=== PATIENT | male | born 1950 | race Asian ===

== ENCOUNTER 2017-06-30 14:07 | Emergency (ER) | payer MEDICARE, OTHER ==
[~2017-06-30] VITALS: Ht 165.1 cm; Wt 72.7 kg
[2017-06-30 14:17] VITALS: BP 162/115; PULSE 99; RESP 18; O2SAT 94
[2017-06-30 14:38] LABS: BASOPHILS % (AUTO) 0.1 % (0-3); EOSINOPHILS % (AUTO) 0.2 % (0-5); MONOCYTES % (AUTO) 8.8 % (4-12); Mean Corpuscular Hemoglobin 29.9 pg (27.0-35.0); Mean Corpuscular Volume 84.3 fL (81-100); NEUTROPHILS % (AUTO) 73.4 % (40-74); Platelet Count 230 bil/L (150-400)
[2017-06-30 15:02] LABS: Magnesium 1.9 mg/dL (1.6-2.6)
--- NOTE | 2017-06-30 16:02 | ED.REPORT ---
HPI-Abd Pain M 40 and Over Date of Service Jun 30, 2017 ED Provider: Jorge Luis Amador MD A 67 year old male with a history of hypertension and diabetes presents to the ED complaining of abdominal pain. This pain began last night and is located in the lower abdomen. The pt admits to associated low grade fever, nausea, and 7 episodes of diarrhea in addition to dark stools. He is concerned that the stool color may be due to blood. The pt denies vomiting, in addition to recent antibiotic use. Nursing Notes Stated Complaint: STOMACH ACHE Chief Complaint: Male Abdominal Pain Nursing Notes Reviewed: Yes Allergies: Coded Allergies: No Known Allergies (Unverified , 06/30/17) Scheduled PRN Hydrocodone-Acetaminophen 5-325 mg (Hydrocodone-Acetaminophen 5-325 mg) 1 Each Tablet 1 TABLET PO Q4H PRN PRN For Pain Ondansetron ODT (Zofran ODT) 4 Mg Tablet 4 MG PO Q4H PRN PRN For Nausea General Time Seen by MD: 15:58 Chief Complaint Abdominal pain Hx Obtained From: Patient Arrived By: Walk-in Sudden in Onset?: No Onset Occurred: 1 day ago Symptom Duration: Since onset Recent Healthcare: No recent doctor visit, No recent hospitalization Similar Sx Previous: No Past Medical History Past Medical History hypertension diabetes Past Surgical History prostatectomy 2009 shoulder nose Smoking History Unknown if Ever Smoker Social History Alcohol Use: "Social" Other Social History: Good social support, Ambulatory Status Independent Review of Systems Review of Systems Note: dark stool Constitutional: Reports: Fever Respiratory: Denies: Non-productive cough, Shortness of breath GI: Reports: Abdominal pain, Diarrhea, Nausea, Denies: Vomiting Musculoskeletal: Denies: Back pain, Neck pain Complete sys rev & neg: except as marked. Physical Exam Initial Vital Signs Vital Signs (First) Date Time Temp Pulse Resp B/P Pulse Ox O2 Delivery O2 Flow Rate FiO2 06/30/17 14:17 36.6 99 18 162/115 94 Room Air Initial VS: Reviewed General/Constitutional: Awake, Alert Respiratory / Chest: Atraumatic, Breath sounds NL, Breath sounds = bilat, No respiratory distress Cardiovascular: Heart rate NL, Regular rhythm, Heart sounds NL, No murmurs Abdomen: Atraumatic, Soft, No guarding, No rebound mild lower abdominal tenderness Back: Atraumatic, Full range of motion, No CVA tenderness Head / Eyes: Atraumatic, Normocephalic, PERRL, EOMI ENT: Atraumatic, Airway patent, Mucous membranes moist Skin: Atraumatic, Color NL, No rash, Warm, Dry Rectum / Perineum: Atraumatic, No gross blood guaiac negative Neurologic: Oriented X3, Speech NL, No motor deficits, No sensory deficits Neck: Atraumatic, Supple, Full range of motion Upper Extremity / MS: Atraumatic, Full range of motion Lower Extremity / Pelvis / MS: Atraumatic, Full range of motion Psychiatric: Affect NL, Mood NL Interpretation & Diagnostics Lab Results Interpretation Result Diagram: 06/30/17 1430 06/30/17 1430 Test 06/30/17 14:30 06/30/17 16:08 White Blood Count 12.7th/mm3 (3.8-10.1) Red Blood Count 5.59mil/mm3 (4.40-5.80) Hemoglobin 16.7g/dL (13.8-17.2) Hematocrit 47.1% (41.0-50.0) Mean Corpuscular Volume 84.3fL (81-100) Mean Corpuscular Hemoglobin 29.9pg (27.0-35.0) Mean Corpuscular Hemoglobin Concent 35.5% (32.0-37.0) Red Cell Distribution Width 13.0% (12.3-15.4) Platelet Count 230bil/L (150-400) Neutrophils (%) (Auto) 73.4% (40-74) Lymphocytes (%) (Auto) 17.3% (14-46) Monocytes (%) (Auto) 8.8% (4-12) Eosinophils (%) (Auto) 0.2% (0-5) Basophils (%) (Auto) 0.1% (0-3) Sodium Level 136mEq/L (134-144) Potassium Level 4.0mEq/L (3.5-5.2) Chloride Level 95mEq/L (97-108) Carbon Dioxide Level 25mmol/L (18-29) Blood Urea Nitrogen 18mg/dL (8-27) Creatinine 1.28mg/dL (0.76-1.27) Estimat Glomerular Filtration Rate 59mL/min (>59) Glucose Level 149mg/dL (60-99) Calcium Level 9.3mg/dL (8.5-10.1) Magnesium Level 1.9mg/dL (1.6-2.6) Total Bilirubin 0.4mg/dL (0.0-1.2) Aspartate Amino Transf (AST/SGOT) 23U/L (0-50) Alanine Aminotransferase (ALT/SGPT) 23U/L (0-44) Alkaline Phosphatase 60U/L (25-160) Total Protein 7.8g/dL (6.4-8.4) Albumin 4.3g/dL (3.4-5.0) Lipase 32U/L (13-60) Hold [place] Top Tube Received (Received) Urine Color Yellow (YELLOW) Urine Appearance Clear (CLEAR,HAZY) Urine pH 6.0 (5.0-8.0) Urine Specific [place] 1.020 (1.003-1.035) Urine Protein Tracemg/dL (NEG,TRACE) Urine Glucose (UA) Negativemg/dL (NEGATIVE) Urine Ketones Negativemg/dL (NEGATIVE) Urine Occult Blood Small (NEGATIVE) Urine Nitrite Negative (NEGATIVE) Urine Bilirubin Negative (NEGATIVE) Urine Urobilinogen Normalmg/dL (NORMAL) Urine Leukocyte Esterase Negative (NEGATIVE) Urine RBC 0-2/hpf (0-2) Urine WBC 0-5/hpf (0-5) Urine Epithelial Cells None/hpf (NONE-MOD) Urine Crystals None seen (NONE SEEN) Urine Bacteria Few/hpf (NONE-FEW) Urine Hyaline Casts None/lpf (NONE) Urine Granular Casts None seen (NONE SEEN) Urine Waxy Casts None seen (NONE SEEN) Urine Red Blood Cell Casts None seen (NONE SEEN) Urine White Blood Cell Casts None seen (NONE SEEN) Urine Mucus Present (None Seen) Urine Trichomonas None seen (NONE SEEN) Urine Yeast None (NONE SEEN) Urinalysis Comment None Urine Culture Reflexed Not indicated Re-Eval/Medical Decision Med Decision/Clinical Course 67-year-old male presenting with multiple episodes of diarrhea 1 day. Crampy abdominal pain. He was concerned he had dark stools. His hemoglobin is stable. His guaiac is negative. Likely viral gastroenteritis. He has no recent antibiotic use. I did offer him fluids, medications and stool cultures all of which patient declined any requests to go home and will hydrate at home return precautions given. Source of Hx: Old records Time of Eval: 15:58 Patient Status: Condition improved Re-Evaluation/Progress Note: Pt informed of the diagnosis and plan for discharge during the initial interview. The pt understands and agrees with the plan. All questions are addressed at this time. Counseled Regarding: Diagnosis, Lab results, Need for follow-up, When/why to return to ED Discharge & Departure Primary Impression: Viral gastroenteritis Disposition: Home Vital Signs - All Vital Signs Date Time Temp Pulse Resp B/P Pulse Ox O2 Delivery O2 Flow Rate FiO2 06/30/17 16:37 36.6 91 20 142/90 96 Room Air 06/30/17 14:17 36.6 99 18 162/115 94 Room Air )( All Prior VS Reviewed: Yes Condition: Stable Patient Instructions: Gastroenteritis (ED) Additional Instructions: Thank you for entrusting us with your care. Your evaluation was reassuring. Your symptoms are likely due to a viral infection. Take Zofran as directed for nausea. Take one [place] every six hours as needed for severe pain. Do not drink, drive, or consume acetaminophen while taking the [place]. Stay hydrated with electrolyte solution (Gatorade, Powerade, etc.). Call your primary care physician to arrange a follow up appointment in the next several days. Return to the emergency department if you develop any new or worsening symptoms such as worsening abdominal pain, bloody stools, nausea, vomiting or persistent diarrhea. Referrals: [facility] (PCP) Scribe Attestation Portions of this note were transcribed by Sonia Pruett. I, Dr. Amador personally performed the history, physical exam and medical decision-making; I reviewed and confirmed the accuracy of the information in the transcribed note. copies to: [facility] Jorge Luis Amador MD Jun 30, 2017 16:02 SONIA PRUETT Jun 30, 2017 16:12
[2017-06-30] MEDS ORDERED: Diltiazem Inj 125 MG in Dextrose 5% 100 ML IV SCH (16:15)
[2017-06-30] MEDS ORDERED: ONDA4TAB9 PO (16:20)
[2017-06-30] MEDS ORDERED: HYDR-4003 PO (16:20)
[2017-06-30] MEDS ORDERED: HYDROcodone-APAP 5-325 mg Tablet PO ONE (16:30)
[2017-06-30 16:36] LABS: APPEARANCE,URINE CLEAR (CLEAR,HAZY); COLOR,URINE YELLOW (YELLOW); OCCULT BLOOD,URINE SMALL (NEGATIVE)
[2017-06-30 16:37] VITALS: BP 142/90; PULSE 91; RESP 20; O2SAT 96
[2017-06-30 16:37] LABS: UROBILINOGEN,URINE NORMAL (NORMAL)
== END 2017-06-30 16:38 | disposition home or self-care (01) ==
LOC: SED 14:07
DX: A08.4 Viral intestinal infection, unspecified (principal); I10 Essential (primary) hypertension; E11.9 Type 2 diabetes mellitus without complications